=== PATIENT | female | born 1990 | race Caucasian/White ===

== ENCOUNTER 2022-10-09 16:00 | Outpatient (CLI) | payer OTHER ==
[2022-10-09 17:33] LABS: FREE T4 (FREE THYROXINE) 0.5 ng/dl (0.8-1.5); THYROID STIMULATING HORMONE 71.19 uIu/mL (0.36-3.74)
== END 2022-10-09 19:44 | disposition home or self-care (01) ==
LOC: SLB 16:00
PROVIDERS: ATTEND Internal Medicine
DX: E03.9 Hypothyroidism, unspecified (principal)
CPT/HCPCS: 36415; 84439; 84443